=== PATIENT | female | born 1950 | race Caucasian/White ===

== ENCOUNTER → 2016-10-10 | Outpatient (CLI) | payer OTHER ==
[~2016-10-10] MED LIST: AMR2 PO; BIOT1CAP3 PO; FOLI1TAB7 PO; INSU1.2I SC; LISIPOW PO; MULT-55 PO; NRV5 PO; PRVC10 PO; STOOL SOFTENER PO
[2016-10-10 11:38] LABS: BASO % 1.1 %; BASO ABS # 0.05 K/uL (0-0.2); COMPLETE YES; HEMATOCRIT 42.2 % (37-47); IG% 0.4 %; LYMPH % 30.4 %; LYMPH ABS # 1.43 K/uL (1.2-3.4); MEAN CORPUSCULAR HEMOGLOBIN 28.7 pg (25-34); MEAN CORPUSCULAR HGB CONC 32.9 g/dl (32-36); MEAN PLATELET VOLUME 10.4 fL (7.4-10.4); MONO % 10.2 %; NEUT % 53.9 %; PLATELET COUNT 236 K/uL (130-400); RED BLOOD COUNT 4.85 M/uL (4.2-5.4); WHITE BLOOD COUNT 4.71 K/uL (4.8-10.8)
[2016-10-10 11:58] LABS: ESTIMATED AVERAGE GLUCOSE 163 mg/dl; HA1C FLAG Normal (Normal)
[2016-10-10 12:11] LABS: ALT/SGPT 29 U/L (12-78); BLOOD UREA NITROGEN 29 mg/dl (7-18); BUN/CREATININE RATIO 22.5 (10-20); CALCIUM 8.6 mg/dl (8.5-10.1); CARBON DIOXIDE 27 mmol/L (21-32); CHLORIDE 109 mmol/L (98-107); GLUCOSE 115 mg/dl (70-99); POTASSIUM 3.9 mmol/L (3.5-5.1); SODIUM 145 mmol/L (136-145)
[2016-10-10 12:20] LABS: ALB/GLOB RATIO 0.8 (0.9-2); ALKALINE PHOSPHATASE 108 U/L (45-117); AST/SGOT 26 U/L (15-37); FERRITIN 241.4 ng/ml (8.0-388.0)
--- NOTE | 2016-10-11 13:50 | CODING QUERY NO DIAGNOSIS ---
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 Please assist us with providing a diagnosis/symptom for the test(s) below: A diagnosis/symptom was not documented on your Order. A valid diagnosis/symptom is required to bill all insurances. Please remember that we are unable to code a diagnosis of rule out, probable, possible, questionable, or suspected. DOS 10/10/16 Tests that require a diagnosis: * CBC w/DIFF DIAGNOSIS: * GLYCATED Hb DIAGNOSIS: * FERRITIN DIAGNOSIS: * IRON DIAGNOSIS: * TSH DIAGNOSIS: * TRANSFERRIN DIAGNOSIS: * COMP METABOLIC DIAGNOSIS: Provider Signature: Date: Thank you Rita [facility] Information Management Once completed, please kindly fax back to [phone] For questions please call [phone]
== END | disposition home or self-care (01) ==
LOC: C.LAB 11:01
DX: D50.9 Iron deficiency anemia, unspecified (principal); E11.9 Type 2 diabetes mellitus without complications; E03.9 Hypothyroidism, unspecified; I10 Essential (primary) hypertension

== ENCOUNTER → 2016-11-11 | Outpatient (CLI) | payer OTHER | END | disposition home or self-care (01) | LOC: C.PATHSPEC 17:17 | PROVIDERS: ATTEND Podiatrist Foot & Ankle Surgery | DX: B07.0 Plantar wart (principal) ==

== ENCOUNTER → 2017-01-28 | Outpatient (CLI) | payer OTHER ==
[2017-01-28 13:08] LABS: HEMATOCRIT 41.3 % (37-47); MEAN CORPUSCULAR HEMOGLOBIN 28.7 pg (25-34); MEAN CORPUSCULAR HGB CONC 32.2 g/dl (32-36); MEAN PLATELET VOLUME 10.6 fL (7.4-10.4); PLATELET COUNT 236 K/uL (130-400); RED BLOOD COUNT 4.64 M/uL (4.2-5.4)
[2017-01-28 13:24] LABS: URINE APPEARANCE CLOUDY (CLEAR); URINE BILIRUBIN NEG (NEG); URINE COLOR YELLOW; URINE EPITHELIAL CELL AUTO >30 /lpf (0-5); URINE NITRITE NEG (NEG); URINE PH 5.5 (4.5-7.5); URINE SPECIFIC GRAVITY 1.018 (1.000-1.030); UROBILINOGEN NEG (NEG)
[2017-01-28 13:30] LABS: MANUAL MICROSCOPIC REQUIRED? NO; REVIEW REQ? NO
[2017-01-28 13:48] LABS: ALT/SGPT 28 U/L (12-78); BLOOD UREA NITROGEN 26 mg/dl (7-18); BUN/CREATININE RATIO 18.6 (10-20); CARBON DIOXIDE 30 mmol/L (21-32); CHLORIDE 106 mmol/L (98-107); GLUCOSE 211 mg/dl (70-99); SODIUM 144 mmol/L (136-145)
[2017-01-28 13:52] LABS: ALB/GLOB RATIO 0.8 (0.9-2); ALKALINE PHOSPHATASE 107 U/L (45-117); AST/SGOT 26 U/L (15-37)
[2017-01-28 13:56] LABS: CALCIUM 8.9 mg/dl (8.5-10.1)
[2017-01-28 14:09] LABS: URINE PROTIEN/CREAT RATIO 1.3 (0-0.2); URINE TOTAL PROTEIN 215.5 mg/dl (0-11.9)
== END | disposition home or self-care (01) ==
LOC: C.LAB 12:00
PROVIDERS: ATTEND Internal Medicine Nephrology
DX: D64.9 Anemia, unspecified (principal); I12.9 Hypertensive chronic kidney disease with stage 1 through stage 4 chronic kidney disease, or unspecified chronic kidney disease; N18.3 Chronic kidney disease, stage 3 (moderate); R80.9 Proteinuria, unspecified; E55.9 Vitamin D deficiency, unspecified

== ENCOUNTER → 2017-02-03 | Outpatient (CLI) | payer OTHER | END | disposition home or self-care (01) | LOC: C.PATHSPEC 11:45 | PROVIDERS: ATTEND Podiatrist Foot & Ankle Surgery | DX: B07.0 Plantar wart (principal) ==

== ENCOUNTER → 2017-02-20 | Outpatient (CLI) | payer OTHER ==
--- NOTE | 2017-02-20 15:41 | MAMMOGRAPHY REPORT ---
BILATERAL DIGITAL SCREENING MAMMOGRAM WITH CAD: 02/20/2017 CLINICAL HISTORY: Routine screening. TECHNIQUE: Current study was also evaluated with a Computer Aided Detection (CAD) system. Bilateral CC and MLO views were obtained. COMPARISON: Comparison is made to exams dated: 02/18/2016 mammogram, 02/16/2015 mammogram, 03/16/2014 u ltrasound, 02/15/2014 mammogram, 02/14/2013 mammogram, and 01/28/2012 mammogram - [facility]. BREAST COMPOSITION: There are scattered areas of fibroglandular density in both breasts. FINDINGS: No suspicious masses, calcifications, or areas of architectural distortion are noted in ei ther breast. There has been no significant interval change compared to prior exams. IMPRESSION: ACR BI-RADS CATEGORY 1: NEGATIVE There is no mammographic evidence of malignancy. A 1 year screening mammogram is recommended. The pa tient will receive written notification of the results. Approximately 10% of breast cancers are not detected with mammography. A negative mammographic report should not delay biopsy if a clinically suggestive mass is present. Cookie Reilly M.D. ah/:02/20/2017 14:37:01 [employer] Office: Kermit Corrales RT(R)(M), [facility] letter sent: Normal 1/2 BI-RADS Code: ACR BI-RADS Category 1: Negative
== END | disposition home or self-care (01) ==
LOC: C.MAMM 12:42
DX: Z12.31 Encounter for screening mammogram for malignant neoplasm of breast (principal)

== ENCOUNTER → 2017-02-24 | Outpatient (CLI) | payer OTHER ==
[2017-02-24 12:29] LABS: BASO % 1.3 %; BASO ABS # 0.05 K/uL (0-0.2); COMPLETE YES; EOS % 5.5 %; HEMATOCRIT 42.1 % (37-47); IG% 0.3 %; LYMPH % 34.6 %; LYMPH ABS # 1.32 K/uL (1.2-3.4); MEAN CELL VOLUME 90.1 fL (80-100); MEAN CORPUSCULAR HEMOGLOBIN 28.7 pg (25-34); MEAN CORPUSCULAR HGB CONC 31.8 g/dl (32-36); MEAN PLATELET VOLUME 10.5 fL (7.4-10.4); MONO % 12.9 %; NEUT % 45.4 %; PLATELET COUNT 245 K/uL (130-400); RED BLOOD COUNT 4.67 M/uL (4.2-5.4); WHITE BLOOD COUNT 3.81 K/uL (4.8-10.8)
[2017-02-24 13:28] LABS: ESTIMATED AVERAGE GLUCOSE 177 mg/dl; HA1C FLAG Normal (Normal)
== END | disposition home or self-care (01) ==
LOC: C.LAB 09:59
DX: E11.9 Type 2 diabetes mellitus without complications (principal); E78.5 Hyperlipidemia, unspecified; I10 Essential (primary) hypertension; D64.9 Anemia, unspecified; E72.11 Homocystinuria

== ENCOUNTER → 2017-03-05 | Outpatient (CLI) | payer OTHER ==
[2017-03-05 13:45] LABS: BLOOD UREA NITROGEN 29 mg/dl (7-18)
[2017-03-05 13:46] LABS: BUN/CREATININE RATIO 19.3 (10-20)
== END | disposition home or self-care (01) ==
LOC: C.LAB 11:52
PROVIDERS: ATTEND Urology
DX: N28.89 Other specified disorders of kidney and ureter (principal)

== ENCOUNTER → 2017-03-16 | Outpatient (CLI) | payer OTHER ==
[~2017-03-16] MED LIST changes: +GADAVIST IV PRN
--- NOTE | 2017-03-16 15:16 | DIAGNOSTIC IMAGING REPORT ---
MRI OF THE ABDOMEN WITH AND WITHOUT CONTRAST RENAL PROTOCOL CLINICAL HISTORY: Left renal mass. Renal hemorrhage. Polycystic kidney disease. COMPARISON STUDY: CT of the abdomen November 02, 2015 and MRI of the abdomen June 10, 2016. TECHNIQUE: Utilizing a 1.5 Inge magnet and dedicated coil, multiplanar, multiecho imaging of the abdomen was performed pre and postcontrast administration. Post contrast imaging was performed utilizing dynamic enhancement. Injection of 6.5 cc of Gadavist IV was uneventful. FINDINGS: Multiple T2 hyperintense nonenhancing hepatic lesions are consistent with cysts. These are similar to prior exam. The spleen, adrenal glands and pancreas are unremarkable. There is no biliary or pancreatic ductal dilatation. There is no abdominal lymphadenopathy or ascites. There has been continued decrease in size of the chronic left subcapsular renal hematoma since exam of June 10, 2016. There is no acute subcapsular hematoma. There is no acute perinephric hemorrhage. Innumerable bilateral renal cysts are noted. Several these are T1 hyperintense. A few have developed T1 hyperintensity since exam of June 10, 2016 consistent with interval hemorrhage. The largest lesion is a 3.2 cm hyperdense cyst arising from the upper pole of the left kidney. No enhancing renal lesions are identified on this examination. 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 IMPRESSION: 1. No enhancing renal lesions. 2. Innumerable bilateral renal cysts with interval development of inherent T1 hyperintensity within several of these lesions since MRI of June 10, 2016 which suggests interval hemorrhage. No acute perinephric/subcapsular hemorrhage. Resolving chronic left renal subcapsular hematoma. Electronically signed by: Hudson Medrano M.D. 03/16/2017 3:15 PM Dictated Date/Time: 03/16/2017 1:01 PM
== END | disposition home or self-care (01) ==
LOC: C.MRI 10:16
PROVIDERS: ATTEND Urology
DX: N28.89 Other specified disorders of kidney and ureter (principal)

== ENCOUNTER → 2017-05-05 | Outpatient (CLI) | payer OTHER ==
[~2017-05-05] MED LIST changes: -GADAVIST IV PRN
== END | disposition home or self-care (01) ==
LOC: C.LABSPEC 10:23
PROVIDERS: ATTEND Podiatrist Foot & Ankle Surgery
DX: B07.0 Plantar wart (principal)

== ENCOUNTER → 2017-05-28 | Outpatient (CLI) | payer OTHER ==
[2017-05-28 12:12] LABS: BASO ABS # 0.04 K/uL (0-0.2); COMPLETE YES; EOS % 6.6 %; HEMATOCRIT 40.4 % (37-47); IG% 0.5 %; LYMPH % 37.7 %; LYMPH ABS # 1.48 K/uL (1.2-3.4); MEAN CELL VOLUME 87.4 fL (80-100); MEAN CORPUSCULAR HEMOGLOBIN 28.1 pg (25-34); MEAN CORPUSCULAR HGB CONC 32.2 g/dl (32-36); MONO % 11.2 %; PLATELET COUNT 234 K/uL (130-400); RED BLOOD COUNT 4.62 M/uL (4.2-5.4); WHITE BLOOD COUNT 3.93 K/uL (4.8-10.8)
[2017-05-28 12:20] LABS: ESTIMATED AVERAGE GLUCOSE 160 mg/dl; HA1C FLAG Normal (Normal)
[2017-05-28 12:28] LABS: ALT/SGPT 29 U/L (12-78); AST/SGOT 30 U/L (15-37); BLOOD UREA NITROGEN 25 mg/dl (7-18); BUN/CREATININE RATIO 22.8 (10-20); CALCIUM 8.4 mg/dl (8.5-10.1); CARBON DIOXIDE 27 mmol/L (21-32); CHLORIDE 109 mmol/L (98-107); CHOLESTEROL 183 mg/dl (0-200); GLUCOSE 175 mg/dl (70-99); MAGNESIUM 1.9 mg/dl (1.8-2.4); POTASSIUM 3.8 mmol/L (3.5-5.1); SODIUM 143 mmol/L (136-145)
[2017-05-28 12:31] LABS: HDL CHOLESTEROL 46 mg/dl; LDL CHOLESTEROL CALCULATED 81 mg/dl; PHOSPHORUS 2.8 mg/dl (2.5-4.9); TRIGLYCERIDES 279 mg/dl (0-150); VERY LOW DENSITY LIPOPROT CALC 56 mg/dl
== END | disposition home or self-care (01) ==
LOC: C.LAB 10:30
DX: E11.9 Type 2 diabetes mellitus without complications (principal); E78.5 Hyperlipidemia, unspecified; E78.00 Pure hypercholesterolemia, unspecified

== ENCOUNTER → 2017-08-08 | Outpatient (CLI) | payer OTHER ==
[~2017-08-08] MED LIST changes: -FOLI1TAB7 PO; +FOLI1TAB8 PO
[2017-08-08 12:06] LABS: HEMATOCRIT 38.9 % (37-47); HEMOGLOBIN 12.5 g/dL (12.0-16.0); MEAN CELL VOLUME 88.6 fL (80-100); MEAN CORPUSCULAR HEMOGLOBIN 28.5 pg (25-34); MEAN CORPUSCULAR HGB CONC 32.1 g/dl (32-36); MEAN PLATELET VOLUME 10.4 fL (7.4-10.4); PLATELET COUNT 212 K/uL (130-400); RED CELL DISTRIBUTION WIDTH CV 15.2 % (11.5-14.5); RED CELL DISTRIBUTION WIDTH SD 48.8 fL (36.4-46.3); WHITE BLOOD COUNT 3.63 K/uL (4.8-10.8)
[2017-08-08 12:37] LABS: ALBUMIN 3.2 gm/dl (3.4-5.0); BLOOD UREA NITROGEN 26 mg/dl (7-18); CALCIUM 9.2 mg/dl (8.5-10.1); CARBON DIOXIDE 30 mmol/L (21-32); CREATININE 1.29 mg/dl (0.60-1.20); GLUCOSE 144 mg/dl (70-99); POTASSIUM 4.3 mmol/L (3.5-5.1); SODIUM 141 mmol/L (136-145)
[2017-08-08 12:38] LABS: PHOSPHORUS 3.6 mg/dl (2.5-4.9)
== END | disposition home or self-care (01) ==
LOC: C.LAB 10:45 → EDSTATUS 11:54
PROVIDERS: ATTEND Internal Medicine Nephrology
DX: E88.09 Other disorders of plasma-protein metabolism, not elsewhere classified (principal); E55.9 Vitamin D deficiency, unspecified; D64.9 Anemia, unspecified; N18.3 Chronic kidney disease, stage 3 (moderate); R80.9 Proteinuria, unspecified; Q61.3 Polycystic kidney, unspecified; I12.9 Hypertensive chronic kidney disease with stage 1 through stage 4 chronic kidney disease, or unspecified chronic kidney disease

== ENCOUNTER → 2017-09-18 | Outpatient (CLI) | payer OTHER ==
[2017-09-18 12:36] LABS: BASO ABS # 0.04 K/uL (0-0.2); EOS % 4.7 %; EOS ABS # 0.19 K/uL (0-0.5); HEMATOCRIT 41.2 % (37-47); HEMOGLOBIN 13.4 g/dL (12.0-16.0); LYMPH % 36.4 %; LYMPH ABS # 1.47 K/uL (1.2-3.4); MEAN CELL VOLUME 87.3 fL (80-100); MEAN CORPUSCULAR HEMOGLOBIN 28.4 pg (25-34); MEAN CORPUSCULAR HGB CONC 32.5 g/dl (32-36); MEAN PLATELET VOLUME 10.4 fL (7.4-10.4); MONO % 12.6 %; MONO ABS # 0.51 K/uL (0.11-0.59); NEUT % 45.3 %; NEUT ABS # 1.83 K/uL (1.4-6.5); PLATELET COUNT 240 K/uL (130-400); RED CELL DISTRIBUTION WIDTH SD 48.4 fL (36.4-46.3); WHITE BLOOD COUNT 4.04 K/uL (4.8-10.8)
[2017-09-18 12:50] LABS: HEMOGLOBIN A1C 7.5 % (4.5-5.6)
[2017-09-18 13:43] LABS: ALT/SGPT 29 U/L (12-78); AST/SGOT 24 U/L (15-37); BLOOD UREA NITROGEN 26 mg/dl (7-18); CALCIUM 9.1 mg/dl (8.5-10.1); CARBON DIOXIDE 30 mmol/L (21-32); CREATININE 1.16 mg/dl (0.60-1.20); GLUCOSE 141 mg/dl (70-99); POTASSIUM 3.8 mmol/L (3.5-5.1); SODIUM 140 mmol/L (136-145)
== END | disposition home or self-care (01) ==
LOC: C.LAB 10:53
DX: E11.9 Type 2 diabetes mellitus without complications (principal); I10 Essential (primary) hypertension

== ENCOUNTER → 2017-09-23 | Outpatient (CLI) | payer OTHER ==
--- NOTE | 2017-09-23 15:00 | DIAGNOSTIC IMAGING REPORT ---
L KNEE 1 OR 2 VIEWS ROUTINE HISTORY: 67 years-old Female L KNEE PAIN acute left knee pain without reported trauma COMPARISON: Radiographs of the left knee 05/21/2012 TECHNIQUE: AP and lateral views of the left knee FINDINGS: Bones appear mildly demineralized. Mild tricompartmental osteoarthritis is seen, most pronounced within the medial compartment. Small joint effusion. No acute fracture, subluxation or intra-articular loose body. No significant soft tissue swelling. Peripheral vascular disease. IMPRESSION: 1. Mild tricompartmental osteoarthritis without acute fracture or subluxation. 2. Small joint effusion. The above report was generated using voice recognition software. It may contain grammatical, syntax or spelling errors. Electronically signed by: Pierce Chavarria M.D. 09/23/2017 2:59 PM Dictated Date/Time: 09/23/2017 2:57 PM
== END | disposition home or self-care (01) ==
LOC: C.RAD 14:37
DX: M17.12 Unilateral primary osteoarthritis, left knee (principal); M25.562 Pain in left knee; M25.462 Effusion, left knee

== ENCOUNTER → 2017-12-22 | Outpatient (CLI) | payer OTHER ==
[2017-12-22 12:59] LABS: HEMOGLOBIN A1C 6.8 % (4.5-5.6)
[2017-12-22 14:16] LABS: ALT/SGPT 27 U/L (12-78); AST/SGOT 29 U/L (15-37); BLOOD UREA NITROGEN 37 mg/dl (7-18); CALCIUM 8.8 mg/dl (8.5-10.1); CARBON DIOXIDE 25 mmol/L (21-32); CREATININE 1.42 mg/dl (0.60-1.20); GLUCOSE 112 mg/dl (70-99); SODIUM 138 mmol/L (136-145)
[2017-12-22 14:19] LABS: CHOLESTEROL 183 mg/dl (0-200); LDL CHOLESTEROL CALCULATED 95 mg/dl
== END | disposition home or self-care (01) ==
LOC: C.LAB 10:45
DX: E11.9 Type 2 diabetes mellitus without complications (principal); E78.5 Hyperlipidemia, unspecified

== ENCOUNTER → 2018-04-19 | Outpatient (CLI) | payer OTHER ==
[2018-04-19 14:39] LABS: BASO % 1.4 %; BASO ABS # 0.06 K/uL (0-0.2); EOS % 5.4 %; EOS ABS # 0.24 K/uL (0-0.5); HEMATOCRIT 39.9 % (37-47); HEMOGLOBIN 12.7 g/dL (12.0-16.0); IG# 0.01 K/uL (0.00-0.02); LYMPH % 37.6 %; LYMPH ABS # 1.66 K/uL (1.2-3.4); MEAN CELL VOLUME 88.7 fL (80-100); MEAN CORPUSCULAR HEMOGLOBIN 28.2 pg (25-34); MEAN CORPUSCULAR HGB CONC 31.8 g/dl (32-36); MEAN PLATELET VOLUME 10.6 fL (7.4-10.4); MONO % 14.3 %; MONO ABS # 0.63 K/uL (0.11-0.59); NEUT % 41.1 %; NEUT ABS # 1.81 K/uL (1.4-6.5); PLATELET COUNT 240 K/uL (130-400); RED CELL DISTRIBUTION WIDTH CV 15.2 % (11.5-14.5); RED CELL DISTRIBUTION WIDTH SD 49.1 fL (36.4-46.3); WHITE BLOOD COUNT 4.41 K/uL (4.8-10.8)
[2018-04-19 15:20] LABS: ALBUMIN 3.3 gm/dl (3.4-5.0); ALT/SGPT 28 U/L (12-78); AST/SGOT 24 U/L (15-37); BLOOD UREA NITROGEN 29 mg/dl (7-18); CALCIUM 8.8 mg/dl (8.5-10.1); CARBON DIOXIDE 28 mmol/L (21-32); CREATININE 1.35 mg/dl (0.60-1.20); GLUCOSE 138 mg/dl (70-99); SODIUM 141 mmol/L (136-145)
[2018-04-19 15:46] LABS: CREATININE RANDOM URINE 87.4 mg/dl
== END | disposition home or self-care (01) ==
LOC: C.LAB 12:32
DX: E11.9 Type 2 diabetes mellitus without complications (principal); E78.5 Hyperlipidemia, unspecified

== ENCOUNTER 2020-04-23 11:22 | Observation (INO) ==
[2020-04-23 12:31] LABS: Basophils # (auto) 0.06 K/uL (0-0.2); Basophils % (auto) 1.2 %; Eosinophils # (auto) 0.42 K/uL (0-0.5); Eosinophils % (auto) 8.6 %; Hematocrit (blood only) 38.8 % (37-47); Hemoglobin 12.7 g/dL (12.0-16.0); Immature Granulocytes # (auto) 0.01 K/uL (0.00-0.02); Immature Granulocytes % (auto) 0.2 %; Lymphocytes # (auto) 1.48 K/uL (1.2-3.4); Lymphocytes % (auto) 30.3 %; Mean Corpuscular Hemoglobin 28.3 pg (25-34); Mean Corpuscular Hgb Conc 32.7 g/dL (32-36); Mean Corpuscular Volume 86.4 fL (80-100); Mean Platelet Volume 9.9 fL (7.4-10.4); Monocytes # (auto) 0.53 K/uL (0.11-0.59); Monocytes % (auto) 10.9 %; Neutrophils # (auto) 2.38 K/uL (1.4-6.5); Neutrophils % (auto) 48.8 %; Platelet Count 209 K/uL (130-400); RDW Coefficient of Variation 15.2 % (11.5-14.5); RDW Standard Deviation 48.5 fL (36.4-46.3); Red Blood Count 4.49 M/uL (4.2-5.4); White Blood Count 4.88 K/uL (4.8-10.8)
[2020-04-23 12:46] LABS: Partial Thromboplastin Ratio 0.9; Partial Thromboplastin Time 23.9 Seconds (21.0-31.0); Prothrombin Time 10.3 Seconds (9.0-12.0)
[2020-04-23 12:53] LABS: Alanine Aminotransferase 26 U/L (12-78); Aspartate Aminotransferase 34 U/L (15-37); BUN Creatinine Ratio 20.9 (10-20); Blood Urea Nitrogen 30 mg/dl (7-18); Carbon Dioxide 25 mmol/L (21-32); Chloride 111 mmol/L (98-107); Creatinine Clr Calc Pharmacy 31.2 ml/min; Est GFR (African American) 42.6; Est GFR (Non-African American) 36.8; Glucose 211 mg/dl (70-99); Lipase 207 U/L (73-393); Potassium 3.6 mmol/L (3.5-5.1); Sodium 142 mmol/L (136-145)
--- NOTE | 2020-04-23 12:58 | Electrocardiogram Report ---
Test Reason : Blood Pressure : / mmHG Vent. Rate : 077 BPM Atrial Rate : 077 BPM P-R Int : 188 ms QRS Dur : 092 ms QT Int : 398 ms P-R-T Axes : 000 -34 088 degrees QTc Int : 450 ms Normal sinus rhythm with sinus arrhythmia Left axis deviation Poor R wave progression, consider anterior AK vs. lead placement vs. LVH Abnormal ECG When compared with ECG of 30-JUN-2015 18:16, No significant change was found Confirmed by Aaron Romo ([id number]) on 04/23/2020 12:58:13 PM Referred By: Nikolas Chu Confirmed By:Aaron Romo
--- NOTE | 2020-04-23 13:03 | XRay Report ---
XR chest 2V PA/lateral CLINICAL HISTORY: Atypical chest pain COMPARISON STUDY: No previous studies for comparison. FINDINGS: The heart is the upper limits of normal in size. There is aortic tortuosity. There is no fa ilure. There is no focal pulmonary consolidation. No pleural effusions are visualized.[ IMPRESSION: No active disease in the chest. ACT 112: Negative or not required by law. Electronically signed by: Jose Rodrigez M.D. 04/23/2020 1:02 PM
--- NOTE | 2020-04-23 13:05 | Emergency Department Note ---
History of Present Illness General Chief complaint: Cardiac Assessment Stated complaint: PRESSURE/PAIN IN CHEST Time Seen by Provider: 04/23/20 12:07 History of Present Illness Provider complaint: Chest pain Onset (ago): day(s) 3 Location: chest Radiation: non-radiation Severity: moderate Pain Consistency: + intermittent Maximum Pain Intensity: 6 Current Pain Intensity: 0 Quality: + dull and + other (Pressure) Relieved By: + none Exacerbated By: + none Associated symptoms: + chest pain; no cough, no diaphoresis, no fever/chills, no headaches, no nausea/vomiting, no shortness of breath and no syncope Patient denies any history of loss of taste or smell. No fevers. No cough. No hemoptysis. No exogenous hormone usage. No recent travel. Patient states her pain started after she got a mammogram on Thursday. Home Medications Home Medications Medication Instructions Recorded Confirmed Type docusate sodium 100 mg tablet 100 mg PO QAM tab 06/20/19 04/23/20 History folic acid 1 mg tablet 1 mg PO QAM #90 tab 06/20/19 04/23/20 History pioglitazone 30 mg tablet 30 mg PO QAM tab 06/20/19 04/23/20 History amlodipine 5 mg tablet 5 mg PO HS tab 03/05/20 04/23/20 History fluticasone propionate 50 1 sprays INTRANASAL DAILY PRN #3 gm 03/05/20 04/23/20 History mcg/actuation nasal spray,suspension Nikky Eyelid Solution 1 applic TOPICAL QAM 04/23/20 04/23/20 History antiox.mv no.[id number]-apy-lvy 1 cap PO QAM 04/23/20 04/23/20 History [I-Caps] biotin 10,000 mcg PO QAM 04/23/20 04/23/20 History calcium carbonate-vitamin D3 1 tab PO QAM 04/23/20 04/23/20 History [Calcium 500 + D (D3)] cholecalciferol (vitamin D3) 25 mcg PO QAM 04/23/20 04/23/20 History [Vitamin D3] cyclosporine [Restasis MultiDose] 1 drp OPB QAM 04/23/20 04/23/20 History insulin degludec [Tresiba 18 unit SUBCUT HS 04/23/20 04/23/20 History FlexTouch U-100] insulin lispro [Humalog KwikPen See Rx Instructions .ROUTE .COMPLEX 04/23/20 04/23/20 History Insulin] lisinopril 10 mg PO HS 04/23/20 04/23/20 History bzrkktly-hik-snfc-FA-lutein 1 tab PO QAM 04/23/20 04/23/20 History [Centrum Silver Women] rosuvastatin [Crestor] 5 mg PO HS 04/23/20 04/23/20 History Allergies Allergy/AdvReac Type Severity Reaction Status Date / Time cephalexin Allergy Unknown Verified 04/23/20 14:08 Cipro Allergy Unknown rash Verified 06/30/15 17:30 ciprofloxacin Allergy Unknown rash Verified 04/23/20 14:08 shellfish derived Allergy Unknown Verified 04/23/20 14:08 Sulfa (Sulfonamide Allergy Unknown . Verified 04/23/20 14:08 Antibiotics) peanuts Allergy Mild Cough Uncoded 04/23/20 14:08 Past Med/Surg History Medical History (Updated 04/23/20 @ 14:01 by Stefan Salmeron MD) Chronic kidney disease, stage III (moderate) Diabetes Hypertension Renal hemorrhage, left Vitamin D deficiency Surgical History (Updated 04/23/20 @ 13:02 by Favio Najera) History of hysterectomy Social History Smoking Status: Never smoker Feels Safe at Home: Yes Review of Systems A total of 10 systems reviewed and were otherwise negative Physical Exam Vital Signs Vital Signs - 24 hr 04/23/20 11:30 04/23/20 12:00 04/23/20 12:16 Temperature 36.8 C Temperature Source Oral Pulse Rate 73 68 69 Pulse Rate from SpO2 Sensor 68 68 Respiratory Rate 20 19 20 Blood Pressure 137/72 134/86 Blood Pressure Mean 93 111 Blood Pressure Position Sitting Pulse Oximetry 97 97 98 Oxygen Delivery Method Sepsis Recent Fever Within 48 Hours No Sepsis New/Unexplained Change in Mental Status No Sepsis Action Taken by Nursing No Action Required 04/23/20 12:30 04/23/20 13:53 04/23/20 14:00 Temperature Temperature Source Pulse Rate 64 66 67 Pulse Rate from SpO2 Sensor 64 Respiratory Rate 22 17 21 Blood Pressure 134/75 154/94 H 167/107 H Blood Pressure Mean 101 119 113 Blood Pressure Position Pulse Oximetry 97 98 98 Oxygen Delivery Method Sepsis Recent Fever Within 48 Hours Sepsis New/Unexplained Change in Mental Status Sepsis Action Taken by Nursing 04/23/20 14:26 Temperature Temperature Source Pulse Rate Pulse Rate from SpO2 Sensor Respiratory Rate Blood Pressure Blood Pressure Mean Blood Pressure Position Pulse Oximetry Oxygen Delivery Method Room Air Sepsis Recent Fever Within 48 Hours Sepsis New/Unexplained Change in Mental Status Sepsis Action Taken by Nursing Physical Exam GENERAL: She is oriented to person, place, and time. She appears well-developed and well-nourished. She does not appear distressed. HENT: Exam performed. -Head: Normocephalic and atraumatic. -Right Ear: External ear normal. No mastoid tenderness. -Left Ear: External ear normal. No mastoid tenderness. -Mouth/Throat: The oropharynx is clear and moist. No trismus in the jaw. No dental abscesses or uvula swelling. No oropharyngeal exudate or tonsillar abscesses. EYES: Conjunctivae and EOM are normal. Pupils are equal, round, and reactive to light. Right eye exhibits no discharge. Left eye exhibits no discharge. No scleral icterus. NECK: Normal range of motion. Neck supple. No JVD present. No spinous process tenderness present. No carotid bruit present. No rigidity. No tracheal deviation and normal range of motion present. No Brudzinski's sign and no Kernig's sign noted. CV: Normal rate, regular rhythm, normal heart sounds and intact distal pulses. There is no peripheral edema. Palpable radial pulses bue. PULM/CHEST: Effort normal and breath sounds normal. No respiratory distress. No stridor. She has no wheezes. She has no rales. -Chest Wall: She exhibits no tenderness. ABD: The abdomen is soft. Bowel sounds are normal. She has no distension. No mass is present. There is no tenderness. There is no rebound, no guarding, no Schuler's sign and no tenderness at McBurney's point. Rovsig negative MUSC/SKEL: Normal range of motion. There is no peripheral edema, tenderness or deformity. LYMPH: No cervical adenopathy. NEURO: She is alert and oriented to person, place, and time. She has normal strength. No cranial nerve deficit or sensory deficit. Coordination and gait normal. GCS eye subscore is 4. GCS verbal subscore is 5. GCS motor subscore is 6. Cerebellar tests wnl. SKIN: Skin is warm and dry. She is not diaphoretic. PSYCH: She has a normal mood and affect. Behavior is normal. Judgment and thought content normal. Course Course 1207: The patient was evaluated in room B10. A complete history and physical exam was performed. Cardiac monitoring: An order was placed for continuous cardiac monitoring. The monitor shows a rate of 80 with sinus rhythm 1314: Vital signs stable. Labs show an elevated troponin at 1.59. Patient states she has been told to avoid all blood thinning medications in the past including aspirin given her history of spontaneous renal hemorrhage. 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 Guillory and he states given her history of spontaneous renal hemorrhage we will hold off on heparin at this time and trend her troponins. [facility]. Medical Decision Making Laboratory Data Result diagrams: 04/23/20 12:15 04/23/20 12:15 Lab Results 04/23/20 04/23/20 04/23/20 Range/Units 12:15 12:15 12:15 WBC 4.88 (4.8-10.8) K/uL RBC 4.49 (4.2-5.4) M/uL Hgb 12.7 (12.0-16.0) g/dL Hct 38.8 (37-47) % MCV 86.4 (80-100) fL MCH 28.3 (25-34) pg MCHC 32.7 (32-36) g/dL RDW Std Deviation 48.5 H (36.4-46.3) fL RDW Coeff of Kristyn 15.2 H (11.5-14.5) % Plt Count 209 (130-400) K/uL MPV 9.9 (7.4-10.4) fL Immature Gran % (Auto) 0.2 % Neut % (Auto) 48.8 % Lymph % (Auto) 30.3 % Kendall % (Auto) 10.9 % Eos % (Auto) 8.6 % Baso % (Auto) 1.2 % Neut # (Auto) 2.38 (1.4-6.5) K/uL Lymph # (Auto) 1.48 (1.2-3.4) K/uL Kendall # (Auto) 0.53 (0.11-0.59) K/uL Eos # (Auto) 0.42 (0-0.5) K/uL Baso # (Auto) 0.06 (0-0.2) K/uL Immature Gran # (Auto) 0.01 (0.00-0.02) K/uL ESR (0-21) mm/hr PT 10.3 (9.0-12.0) Seconds INR 1.0 (0.9-1.1) APTT 23.9 (21.0-31.0) Seconds PTT Ratio 0.9 Sodium 142 (136-145) mmol/L Potassium 3.6 (3.5-5.1) mmol/L Chloride 111 H (98-107) mmol/L Carbon Dioxide 25 (21-32) mmol/L Anion Gap 6.0 (3-11) BUN 30 H (7-18) mg/dl Creatinine 1.43 H (0.6-1.2) mg/dl Est Cr Clr Drug Dosing 31.2 ml/min Est GFR ( Amer) 42.6 Est GFR (Non-Af Amer) 36.8 BUN/Creatinine Ratio 20.9 H (10-20) Glucose 211 H (70-99) mg/dl Calcium 8.0 L (8.5-10.1) mg/dl Total Bilirubin 0.4 (0.2-1) mg/dl Direct Bilirubin < 0.1 (0-0.2) mg/dl AST 34 (15-37) U/L ALT 26 (12-78) U/L Alkaline Phosphatase 86 (45-117) U/L Troponin I 1.590 H* (0-0.045) ng/ml Total Protein 6.9 (6.4-8.2) gm/dl Albumin 3.0 L (3.4-5.0) gm/dl Lipase 207 (73-393) U/L 04/23/20 Range/Units 12:15 WBC (4.8-10.8) K/uL RBC (4.2-5.4) M/uL Hgb (12.0-16.0) g/dL Hct (37-47) % MCV (80-100) fL MCH (25-34) pg MCHC (32-36) g/dL RDW Std Deviation (36.4-46.3) fL RDW Coeff of Kristyn (11.5-14.5) % Plt Count (130-400) K/uL MPV (7.4-10.4) fL Immature Gran % (Auto) % Neut % (Auto) % Lymph % (Auto) % Kendall % (Auto) % Eos % (Auto) % Baso % (Auto) % Neut # (Auto) (1.4-6.5) K/uL Lymph # (Auto) (1.2-3.4) K/uL Kendall # (Auto) (0.11-0.59) K/uL Eos # (Auto) (0-0.5) K/uL Baso # (Auto) (0-0.2) K/uL Immature Gran # (Auto) (0.00-0.02) K/uL ESR 22 H (0-21) mm/hr PT (9.0-12.0) Seconds INR (0.9-1.1) APTT (21.0-31.0) Seconds PTT Ratio Sodium (136-145) mmol/L Potassium (3.5-5.1) mmol/L Chloride (98-107) mmol/L Carbon Dioxide (21-32) mmol/L Anion Gap (3-11) BUN (7-18) mg/dl Creatinine (0.6-1.2) mg/dl Est Cr Clr Drug Dosing ml/min Est GFR ( Amer) Est GFR (Non-Af Amer) BUN/Creatinine Ratio (10-20) Glucose (70-99) mg/dl Calcium (8.5-10.1) mg/dl Total Bilirubin (0.2-1) mg/dl Direct Bilirubin (0-0.2) mg/dl AST (15-37) U/L ALT (12-78) U/L Alkaline Phosphatase (45-117) U/L Troponin I (0-0.045) ng/ml Total Protein (6.4-8.2) gm/dl Albumin (3.4-5.0) gm/dl Lipase (73-393) U/L Imaging Data Radiologist's Impression: XR chest 2V PA/lateral CLINICAL HISTORY: Atypical chest pain COMPARISON STUDY: No previous studies for comparison. FINDINGS: The heart is the upper limits of normal in size. There is aortic tortu osity. There is no failure. There is no focal pulmonary consolidation. No pleural effusions are visualized.[ IMPRESSION: No active disease in the chest. ACT 112: Negative or not required by law. Electronically signed by: Jose Rodrigez M.D. 04/23/2020 1:02 PM Dictated: 04/23/20 1301 Transcribed: 04/23/20 1301 ECG Data Indication: + chest pain Rate (beats per minute): 77 Rhythm: + normal sinus ECG Intervals/blocks: + Normal QRS, + Normal NH and + Normal QT-c ECG ST segments: + Normal ST segments ECG Findings: + LVH MDM Narrative Vital signs stable. Labs show an elevated troponin at 1.59. Patient states she has been told to avoid all blood thinning medications in the past including aspirin given her history of spontaneous renal hemorrhage. I discussed the case with her weaver tire cord Dr. Guillory and he states given her history of spontaneous renal hemorrhage we will hold off on heparin at this time and trend her troponins. [facility] was [facility]. Impression & Plan Non-ST elevation [facility] (NSTEMI) Discharge Plan Visit Data Chief Complaint: Cardiac Assessment Stated Complaint: PRESSURE/PAIN IN CHEST ED Provider: Favio Najera Discharge Problem: Non-ST elevation [facility] (NSTEMI) Patient Disposition: Admitted As Inpatient Discharge Instructions Interventions: ED Discharge Assessment Last Done: 04/23/20 14:26 Forms Stand Alone Forms: My [facility] Prescriptions Prescriptions: No Action folic acid 1 mg tablet 1 mg PO QAM Qty: 90 RF: 0 pioglitazone 30 mg tablet 30 mg PO QAM RF: 0 docusate sodium 100 mg tablet 100 mg PO QAM RF: 0 amlodipine 5 mg tablet 5 mg PO HS RF: 0 fluticasone propionate 50 mcg/actuation spray,suspension 1 sprays intranasal DAILY PRN (Reason: Congestion) Qty: 3 RF: 0 biotin 10,000 mcg Capsule 10,000 mcg PO QAM RF: 0 lisinopril 10 mg tablet 10 mg PO HS RF: 0 insulin lispro [Humalog KwikPen Insulin] 100 unit/mL insulin pen See Rx Instructions .ROUTE .COMPLEX RF: 0 rosuvastatin [Crestor] 5 mg tablet 5 mg PO HS RF: 0 cholecalciferol (vitamin D3) [Vitamin D3] 25 mcg (1,000 unit) Tablet 25 mcg PO QAM RF: 0 calcium carbonate-vitamin D3 [Calcium 500 + D (D3)] 500 mg(1,250mg) -125 unit Tablet 1 tab PO QAM RF: 0 Centrum Silver Women 8 mg iron-400 mcg-300 mcg Tablet 1 tab PO QAM RF: 0 I-Caps 280-10-2 mg Capsule 1 cap PO QAM RF: 0 Tresiba FlexTouch U-100 100 unit/mL (3 mL) insulin pen 18 unit SUBCUT HS RF: 0 Restasis MultiDose 0.05 % drops 1 drp OPB QAM RF: 0 Nikky Eyelid Solution 1 applic topical QAM RF: 0 Referrals Referrals: Nikolas Chu Jr, [Primary Care Provider] -
[2020-04-23 13:06] LABS: Alkaline Phosphatase 86 U/L (45-117); Bilirubin Direct < 0.1 mg/dl (0-0.2); Bilirubin,Total 0.4 mg/dl (0.2-1); Total Protein 6.9 gm/dl (6.4-8.2)
--- NOTE | 2020-04-23 13:42 | History & Physical Report ---
Date of Service April 23, 2020 Assessment & Plan (1) Atypical chest pain: Perimyocarditis vs. NSTEMI Currently chest pain free, encouraged to tell nurses if any recurrence Serial troponins ESR/CRP added to assess for pericarditis, if raised will add colchicine HbA1C and lipid panel with AM labs TTE today No ASA/heparin/NSAIDs in ER given history of retroperitoneal bleed on ASA alone and not definitive NSTEMI at this time, history certainly more consistent with pericarditis, will discuss further with urology Continue rosuvastatin Consult cardiology (2) Diabetes: Home med list: Humalog 2, 6, 10-12, Tresiba 18 units HS (took last night), Pioglitazone 30mg PO daily Inpatient treatment with T2DM diet, Lantus 10 units BID, Novolog aim 110-140, correction 30, carb coverage 11 HbA1C with AM labs (previously 7.9 in Oct) (3) Chronic kidney disease, stage III (moderate): Monitor BMP with AM labs (4) Hypertension: Continue home medication of lisinopril 10mg PO daily (5) DVT prophylaxis: No chemical prophylaxis due to history of retroperitoneal bleed Admission and Anticipated Discharge Date Admission Date: 04/23/2020 History of Present Illness Chief Complaint: Chest pain Primary Care Provider: Nikolas Chu Jr, Anjelica Taylor is a 70 year old female who presented to the ER via private vehicle due to chest pain. Started on 3 days previously with mild discomfort in chest at rest. Substernal, no radiation. "Little pressure and dull pain", not sharp. Non-exertional. Worse at night when lying down. No associated SOB, diaphoresis, nausea. Appeared to improve in the morning and even managed yard work without pain. However, progressively got worse towards the evening. The following day she had the same pattern with worsening intermittent chest pain throughout the day. Last night is the worst it has been and she had a hard time going to sleep. She would have come to the ER then but she has a hard time driving at night therefore waited till this morning to call her PCP who advised her to come to the ER. Worst pain around 11-1am last night, severity 6-7/10. No pain since waking up this morning. Generally more tired recently and not exerting herself as much. No orthopnea, PND, palpitations, presyncope or syncope. No personal smoking or cardiac history. Family history of CAD - father in 60s, brother in 80s. Concerning history of spontaneous retroperitoneal bleed in 2016 associated with renal cysts requiring ICU admission although no invasive intervention ulblue mately. This occurred while taking aspirin 81mg and she was told she should not take blood thinners again. However she was also taking NSAIDs 3 weeks prior to this diagnosis and thought was this also potentially contributed. Under Dr Cox (previously Dr Koch). In the ER she has been chest pain free however troponin was elevated. No ASA or heparin started due to history of retroperitoneal bleed. Allergies Allergy/AdvReac Type Severity Reaction Status Date / Time cephalexin Allergy Unknown Verified 04/23/20 14:08 Cipro Allergy Unknown rash Verified 06/30/15 17:30 ciprofloxacin Allergy Unknown rash Verified 04/23/20 14:08 shellfish derived Allergy Unknown Verified 04/23/20 14:08 Sulfa (Sulfonamide Allergy Unknown . Verified 04/23/20 14:08 Antibiotics) peanuts Allergy Mild Cough Uncoded 04/23/20 14:08 Home Medications Home Medications Medication Instructions Recorded Confirmed Type docusate sodium 100 mg tablet 100 mg PO QAM tab 06/20/19 04/23/20 History folic acid 1 mg tablet 1 mg PO QAM #90 tab 06/20/19 04/23/20 History pioglitazone 30 mg tablet 30 mg PO QAM tab 06/20/19 04/23/20 History amlodipine 5 mg tablet 5 mg PO HS tab 03/05/20 04/23/20 History fluticasone propionate 50 1 sprays INTRANASAL DAILY PRN #3 gm 03/05/20 04/23/20 History mcg/actuation nasal spray,suspension Nikky Eyelid Solution 1 applic TOPICAL QAM 04/23/20 04/23/20 History antiox.mv no.[id number] 1 cap PO QAM 04/23/20 04/23/20 History [I-Caps] biotin 10,000 mcg PO QAM 04/23/20 04/23/20 History calcium carbonate-vitamin D3 1 tab PO QAM 04/23/20 04/23/20 History [Calcium 500 + D (D3)] cholecalciferol (vitamin D3) 25 mcg PO QAM 04/23/20 04/23/20 History [Vitamin D3] cyclosporine [Restasis MultiDose] 1 drp OPB QAM 04/23/20 04/23/20 History insulin degludec [Tresiba 18 unit SUBCUT HS 04/23/20 04/23/20 History FlexTouch U-100] insulin lispro [Humalog KwikPen See Rx Instructions .ROUTE .COMPLEX 04/23/20 04/23/20 History Insulin] lisinopril 10 mg PO HS 04/23/20 04/23/20 History vvxejwdq-lnq-ephs-FA-lutein 1 tab PO QAM 04/23/20 04/23/20 History [Centrum Silver Women] rosuvastatin [Crestor] 5 mg PO HS 04/23/20 04/23/20 History Past Med/Surg History Medical History Chronic kidney disease, stage III (moderate) Diabetes Hypertension Renal hemorrhage, left Vitamin D deficiency Surgical History History of hysterectomy Social History Smoking Status: Never smoker Hx Alcohol Use: No Hx Substance Use: No Preferred Language: Libyan Communication Ability: Effective Ticket 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 Supervisor Required: No Beliefs That Will Affect Care: None Current Living Situation: Alone Other Information That Helps Us Care for You: No Feels Safe at Home: Yes Safety Concerns: Feels Safe At This Time Review of Systems Review of Systems: All systems reviewed & are unremarkable except as noted in HPI & below Physical Exam Constitutional: well developed and well nourished; no acute distress Eyes: PERRL, conjunctivae normal, anicteric sclerae ENMT: external ear and nose normal, oropharynx normal Neck: trachea midline, no thyromegaly Respiratory: normal respiratory effort, lungs clear to auscultation Cardiovascular: Rate/Rhythm: regular rate and regular rhythm Heart Sounds: no murmur Vessels: no JVD Extremities: normal capillary refill and + pedal edema (trace b/l equal); no calf tenderness Gastrointestinal (Abdomen): normal bowel sounds, soft, nontender, no hepatosplenomegaly Musculoskeletal: no cyanosis or clubbing, extremities motor strength 5/5 Skin: no rashes, warm and dry Neurologic: moves all extremities and awake; not confused Psychiatric: A+Ox3, euthymic affect Genitourinary: no CVA tenderness Lymphatic: no cervical or axillary lymphadenopathy Results & Data Results & Data ([facility]) Vital Signs (Past 12 Hours) Vital Signs Temp Pulse Resp BP Pulse Ox 04/23/20 12:30 64 22 134/75 97 04/23/20 12:16 69 20 98 04/23/20 12:00 68 19 134/86 97 04/23/20 11:30 36.8 C 73 20 137/72 97 Diagnostic Findings XR chest 2V PA/lateral IMPRESSION: No active disease in the chest. ECG Indication: chest pain Rate (beats per minute): 77 Rhythm: normal sinus Findings: + other (poor R wave progression, left axis deviation) Comparison ECG Date: from (06/30/2015) Change: no significant change Code Status & VTE Plan Code Status Full VTE Prophylaxis Plan VTE Prophylaxis will be ordered: Yes Reason for no VTE drug order: Treatment not indicated (lower risk VTE, higher risk retroperitoneal bleed) PG Care Time/CCT Total # of Minutes Spent Total Time Spent with Patient: Total time spent is greater than 50% in coordination of care (as documented) at patient's floor/unit and/or counseling patient: Coding Level of Care Code 17896 Initial Inpt Care Lvl 3 Diagnoses Atypical chest pain R07.89 Diabetes E11.9 Chronic kidney disease, stage III (moderate) N18.3 Hypertension I10 DVT prophylaxis Z29.9
[2020-04-23] MEDS ORDERED: GLUCOSE 10 TABS/TUBE PO PRN (15:47)
[2020-04-23] MEDS ORDERED: DEXTROSE 50% 50 ML SYRINGE IV PRN (15:47)
[2020-04-23] MEDS ORDERED: GLUCAGON FOR INJ 1 MG VIAL SQ PRN (15:47)
[2020-04-23] MEDS ORDERED: ONDANSETRON INJ 2 MG/ML 2 ML VIAL IV PRN (15:47)
[2020-04-23] MEDS ORDERED: CARBOHYDRATES FOR HYPOGLYCEMIA PO PRN (15:47)
[2020-04-23] MEDS ORDERED: GLUCOSE 40% GEL 15 GM TUBE PO PRN (15:47)
--- NOTE | 2020-04-23 15:48 | XCELERA ---
[id number] \\[id number]_[id number]
[2020-04-23] MEDS ORDERED: FLUTICASONE PROPIONATE NA SPR 16 GM BTL NAE PRN (16:16)
[2020-04-23] MEDS: INSULIN ASPART 100 UNITS/ML 3 ML PEN SC SCH ×2 (17:09→21:26)
[2020-04-23] MEDS ORDERED: CLOPIDOGREL BISULFATE 75 MG TAB PO ONE (20:44)
[2020-04-23] MEDS ORDERED: AMLODIPINE BESYLATE 5 MG TAB PO SCH (21:00)
[2020-04-23] MEDS ORDERED: lisinopriL 10 MG TAB PO SCH (21:00)
[2020-04-23] MEDS ORDERED: COLCHICINE 0.6 MG TAB PO SCH (21:00)
[2020-04-23] MEDS ORDERED: ROSUVASTATIN CALCIUM 5 MG TAB PO SCH (21:00)
[2020-04-23] MEDS: INSULIN GLARGINE SOLOSTAR 100 UNITS/ML 3 ML PEN SC SCH (21:24)
[2020-04-23] MEDS: METOPROLOL TARTRATE 25 MG TAB PO SCH (21:41)
[2020-04-24 05:58] LABS: Hematocrit (blood only) 40.7 % (37-47); Hemoglobin 13.3 g/dL (12.0-16.0); Mean Corpuscular Hemoglobin 28.3 pg (25-34); Mean Corpuscular Hgb Conc 32.7 g/dL (32-36); Mean Corpuscular Volume 86.6 fL (80-100); Mean Platelet Volume 10.2 fL (7.4-10.4); Platelet Count 204 K/uL (130-400); RDW Coefficient of Variation 15.1 % (11.5-14.5); RDW Standard Deviation 48.2 fL (36.4-46.3); White Blood Count 5.42 K/uL (4.8-10.8)
[2020-04-24 06:33] LABS: BUN Creatinine Ratio 24.8 (10-20); Calcium 7.9 mg/dl (8.5-10.1); Creatinine Clr Calc Pharmacy 37.3 ml/min; Est GFR (African American) 49.2; Est GFR (Non-African American) 42.4; Potassium 3.6 mmol/L (3.5-5.1)
[2020-04-24 06:43] LABS: Troponin I 1.82 ng/ml (0-0.045)
[2020-04-24] MEDS: METOPROLOL TARTRATE 25 MG TAB PO SCH (07:50)
[2020-04-24 08:16] LABS: Estimated Average Glucose 171 mg/dl; Hemoglobin A1C 7.6 % (4.5-5.6)
[2020-04-24] MEDS ORDERED: FOLIC ACID 1 MG TAB PO SCH (09:00)
[2020-04-24] MEDS ORDERED: [UNRECOGNIZED DRUG - REMARK] PO SCH (09:00)
[2020-04-24] MEDS ORDERED: NON-FORMULARY MEDICATION (Biotin 10,000 MCG) PO SCH (09:00)
[2020-04-24] MEDS ORDERED: CALCIUM 600MG + VIT D 400 IU TAB PO SCH (09:00)
[2020-04-24] MEDS ORDERED: CLOPIDOGREL BISULFATE 75 MG TAB PO SCH (09:00)
[2020-04-24] MEDS ORDERED: DOCUSATE SODIUM 100 MG CAP PO SCH (09:00)
[2020-04-24] MEDS ORDERED: [UNRECOGNIZED DRUG - OTHER] TOP SCH (09:00)
[2020-04-24] MEDS ORDERED: CEROVITE ADV FORMULA TAB PO SCH (09:00)
[2020-04-24] MEDS ORDERED: CHOLECALCIFEROL 1,000 UNITS 25 MCG TAB PO SCH (09:00)
--- NOTE | 2020-04-24 10:09 | Cardiology Consultation ---
Date of Consultation April 24, 2020 Assessment & Plan (1) Chest pain: 2. Elevated troponin 3. Insulin dependent type 2 diabetes 4. Hypertension 5. Dyslipidemia 6. CKD 7. History of renal hemorrhage Patient was admitted yesterday after several day history of chest pain. Chest pain is somewhat atypical in nature and waxed/waned for hours at a time. No exertional symptoms. She has been chest pain free since admission. On exam appears well perfused without signs of heart failure. Troponin mildly elevated and has remained flat, may be demand ischemia. Echo shows normal LV function and wall motion, EKG without acute changes. Given her risk factors for coronary disease recommend ischemic evaluation to rule out high risk disease. Discussed cardiac catheterization versus stress testing. Patient and daughter prefer stress testing, plan to perform later this morning. Recommend ASCVD risk factor modification. Feel symptoms are atypical for myopericarditis. No recent viral illness. Symptoms are resolved without NSAIDs and inflammatory markers unremarkable. Supervising Physician Co-Signing Physician Notes Patient seen and examined. Agree with Samara Yip's assessment and plan. Suspect mild elevation troponin related to demand ischemia (hypertension and her mild LVH). Agree with stress testing. History of Present Illness Reason for Consultation: chest pain Attending Physician: Danish Koch MD History of Present Illness Mrs. Taylor is a 70 year old female admitted with chest pain. Medical history significant for type 2 insulin dependent diabetes, hypertension, dyslipidemia, CKD, history of renal hemorrhage. Patient denies history of cardiovascular disease. She was admitted yesterday with chest pain. She states that over the past week or so her chest has felt "funny." Then on Thursday evening she developed central chest pressure/tightness which waxed and waned for several hours. Symptoms started while sitting, watching TV. She eventually was able to fall asleep. When she woke the next morning she felt better and performed some light yard work without any exertional symptoms. She tired out easily but that is not unusual for her. Thursday evening she had recurrent chest tightness similar to the night before. Thursday she felt worse and her chest pain waxed and waned throughout the day, by Thursday evening it was more severe and she had trouble falling asleep. Also she had several brief episodes of palpitations in which her heart felt like it was fluttering and racing. No radiation of pain to extremities, neck or jaw. No associated shortness of breath, nausea or diaphoresis. Pain was not positional. No recent viral symptoms. She finally fell asleep around 1 am. Thursday when she woke up she was asymptomatic. She notified her PCP of her chest pain and was advised to come to the emergency department. She was admitted and has not had any recurrence of her chest pain. Initial troponin mildly elevated at 1.59, 1.82 this morning. Electrocardiograms with poor R wave progression, no ST elevation. Echocardiogram with normal LV function, wall motion and mild LVH. She was hypertensive upon presentation. Telemetry sinus rhythm without arrhythmia. Of note patient has a history of polycystic kidney disease with CKD and history of renal hemorrhage requiring transfusion in 2014. She was evaluated at [facility] at that time and was advised to avoid NSAIDs and stop her daily aspirin 81 mg. Family history: Father had LA in early 70s. Aunt with LA in 70s. Oldest brother with LA in 60s, CABG in 70s. Brother with heart disease, still living in 80s. Social history: . Lives alone in [place]. 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 No tobacco, alcohol or drug use. Allergies Allergy/AdvReac Type Severity Reaction Status Date / Time cephalexin Allergy Unknown Verified 04/23/20 14:08 Cipro Allergy Unknown rash Verified 06/30/15 17:30 ciprofloxacin Allergy Unknown rash Verified 04/23/20 14:08 shellfish derived Allergy Unknown Verified 04/23/20 14:08 Sulfa (Sulfonamide Allergy Unknown . Verified 04/23/20 14:08 Antibiotics) peanuts Allergy Mild Cough Uncoded 04/23/20 14:08 Home Medications Home Medications Medication Instructions Recorded Confirmed Type docusate sodium 100 mg tablet 100 mg PO QAM tab 06/20/19 04/23/20 History folic acid 1 mg tablet 1 mg PO QAM #90 tab 06/20/19 04/23/20 History pioglitazone 30 mg tablet 30 mg PO QAM tab 06/20/19 04/23/20 History amlodipine 5 mg tablet 5 mg PO HS tab 03/05/20 04/23/20 History fluticasone propionate 50 1 sprays INTRANASAL DAILY PRN #3 gm 03/05/20 04/23/20 History mcg/actuation nasal spray,suspension Nikky Eyelid Solution 1 applic TOPICAL QAM 04/23/20 04/23/20 History antiox.mv no.[id number]-jwt-tov 1 cap PO QAM 04/23/20 04/23/20 History [I-Caps] biotin 10,000 mcg PO QAM 04/23/20 04/23/20 History calcium carbonate-vitamin D3 1 tab PO QAM 04/23/20 04/23/20 History [Calcium 500 + D (D3)] cholecalciferol (vitamin D3) 25 mcg PO QAM 04/23/20 04/23/20 History [Vitamin D3] cyclosporine [Restasis MultiDose] 1 drp OPB QA 04/23/20 04/23/20 History insulin degludec [Tresiba 18 unit SUBCUT HS 04/23/20 04/23/20 History FlexTouch U-100] insulin lispro [Humalog KwikPen See Rx Instructions .ROUTE .COMPLEX 04/23/20 04/23/20 History Insulin] lisinopril 10 mg PO HS 04/23/20 04/23/20 History bpvnjonc-nhq-olrb-FA-lutein 1 tab PO QAM 04/23/20 04/23/20 History [Centrum Silver Women] rosuvastatin [Crestor] 5 mg PO HS 04/23/20 04/23/20 History Patient History Medical History Chronic kidney disease, stage III (moderate) Diabetes Hypertension Renal hemorrhage, left Vitamin D deficiency Surgical History History of hysterectomy Social History Smoking Status: Never smoker Hx Alcohol Use: No Hx Substance Use: No Preferred Language: Macedonian Communication Ability: Effective Melter Supervisor Required: No Beliefs That Will Affect Care: None Current Living Situation: Alone Other Information That Helps Us Care for You: No Feels Safe at Home: Yes Safety Concerns: Feels Safe At This Time Review of Systems Review of Systems: All systems reviewed & are unremarkable except as noted in HPI & below Physical Exam Physical Exam: General: No acute distress, comfortable. HEENT: Head is normal. PERRLA. EOMI. Sclerae anicteric. Ears, nose and throat unremarkable. Mucous membranes moist. Neck: Normal carotid upstrokes, no bruits. No appreciable JVD. Lungs: Clear to auscultation bilaterally without rales, rhonchi or wheezes. Cardiac: Regular rate and rhythm. S1-S2 normal. No appreciable murmur, gallop or rub. Abdomen: Soft and nontender. Bowel sounds normal. No mass or organomegaly. No abdominal bruit. Extremities/vascular: Well perfused. No peripheral edema. Radial, DP and PT pulses 2+ bilaterally Skin: No rash or abnormal lesions. Normal turgor. Neurologic: Nonfocal Psychiatric: Affect appropriate. Alert and oriented. Results & Data ([facility]) Vital Signs (Past 12 Hours) Vital Signs Temp Pulse Pulse Resp BP Pulse Ox 04/24/20 07:51 36.6 C 64 18 137/76 95 04/24/20 03:47 36.6 C 60 14 130/82 94 04/24/20 00:00 67 04/23/20 23:04 36.7 C 61 16 155/90 H 96 Laboratory Results Laboratory Results - last 24 hr 04/23/20 04/23/20 04/23/20 12:15 12:15 12:15 WBC 4.88 RBC 4.49 Hgb 12.7 Hct 38.8 MCV 86.4 MCH 28.3 MCHC 32.7 RDW Std Deviation 48.5 H RDW Coeff of Kristyn 15.2 H Plt Count 209 MPV 9.9 Immature Gran % (Auto) 0.2 Neut % (Auto) 48.8 Lymph % (Auto) 30.3 [place] % (Auto) 10.9 Eos % (Auto) 8.6 Baso % (Auto) 1.2 Neut # (Auto) 2.38 Lymph # (Auto) 1.48 [place] # (Auto) 0.53 Eos # (Auto) 0.42 Baso # (Auto) 0.06 Immature Gran # (Auto) 0.01 ESR PT 10.3 INR 1.0 APTT 23.9 PTT Ratio 0.9 Sodium 142 Potassium 3.6 Chloride 111 H Carbon Dioxide 25 Anion Gap 6.0 BUN 30 H Creatinine 1.43 H Est Cr Clr Drug Dosing 31.2 Est GFR ( Amer) 42.6 Est GFR (Non-Af Amer) 36.8 BUN/Creatinine Ratio 20.9 H Glucose 211 H POC Glucose Estimat Average Glucose Hemoglobin A1c Calcium 8.0 L Total Bilirubin 0.4 Direct Bilirubin < 0.1 AST 34 ALT 26 Alkaline Phosphatase 86 Troponin I 1.590 H* C-Reactive Protein Total Protein 6.9 Albumin 3.0 L Triglycerides Cholesterol LDL Cholesterol, Calc VLDL Cholesterol, Calc HDL Cholesterol Cholesterol/HDL Ratio Lipase 207 COVID-19 Eval Order 04/23/20 04/23/20 04/23/20 12:15 12:15 16:17 WBC RBC Hgb Hct MCV MCH MCHC RDW Std Deviation RDW Coeff of Kristyn Plt Count MPV Immature Gran % (Auto) Neut % (Auto) Lymph % (Auto) [place] % (Auto) Eos % (Auto) Baso % (Auto) Neut # (Auto) Lymph # (Auto) [place] # (Auto) Eos # (Auto) Baso # (Auto) Immature Gran # (Auto) ESR 22 H PT INR APTT PTT Ratio Sodium Potassium Chloride Carbon Dioxide Anion Gap BUN Creatinine Est Cr Clr Drug Dosing Est GFR ( Amer) Est GFR (Non-Af Amer) BUN/Creatinine Ratio Glucose POC Glucose 111 H Estimat Average Glucose Hemoglobin A1c Calcium Total Bilirubin Direct Bilirubin AST ALT Alkaline Phosphatase Troponin I C-Reactive Protein < 0.29 Total Protein Albumin Triglycerides Cholesterol LDL Cholesterol, Calc VLDL Cholesterol, Calc HDL Cholesterol Cholesterol/HDL Ratio Lipase COVID-19 Eval Order 04/23/20 04/23/20 04/24/20 18:18 20:11 00:23 WBC RBC Hgb Hct MCV MCH MCHC RDW Std Deviation RDW Coeff of Kristyn Plt Count MPV Immature Gran % (Auto) Neut % (Auto) Lymph % (Auto) [place] % (Auto) Eos % (Auto) Baso % (Auto) Neut # (Auto) Lymph # (Auto) [place] # (Auto) Eos # (Auto) Baso # (Auto) Immature Gran # (Auto) ESR PT INR APTT PTT Ratio Sodium Potassium Chloride Carbon Dioxide Anion Gap BUN Creatinine Est Cr Clr Drug Dosing Est GFR ( Amer) Est GFR (Non-Af Amer) BUN/Creatinine Ratio Glucose POC Glucose 151 H Estimat Average Glucose Hemoglobin A1c Calcium Total Bilirubin Direct Bilirubin AST ALT Alkaline Phosphatase Troponin I 1.650 H* 1.880 H* C-Reactive Protein Total Protein Albumin Triglycerides Cholesterol LDL Cholesterol, Calc VLDL Cholesterol, Calc HDL Cholesterol Cholesterol/HDL Ratio Lipase COVID-19 Eval Order 04/24/20 04/24/20 04/24/20 05:18 05:18 05:18 WBC 5.42 RBC 4.70 Hgb 13.3 Hct 40.7 MCV 86.6 MCH 28.3 MCHC 32.7 RDW Std Deviation 48.2 H RDW Coeff of Kristyn 15.1 H Plt Count 204 MPV 10.2 Immature Gran % (Auto) Neut % (Auto) Lymph % (Auto) [place] % (Auto) Eos % (Auto) Baso % (Auto) Neut # (Auto) Lymph # (Auto) [place] # (Auto) Eos # (Auto) Baso # (Auto) Immature Gran # (Auto) ESR PT INR APTT PTT Ratio Sodium 144 Potassium 3.6 Chloride 112 H Carbon Dioxide 25 Anion Gap 7.0 BUN 32 H Creatinine 1.27 H Est Cr Clr Drug Dosing 37.3 Est GFR ( Amer) 49.2 Est GFR (Non-Af Amer) 42.4 BUN/Creatinine Ratio 24.8 H Glucose 180 H POC Glucose Estimat Average Glucose 171 Hemoglobin A1c 7.6 H Calcium 7.9 L Total Bilirubin Direct Bilirubin AST ALT Alkaline Phosphatase Troponin I 1.820 H* C-Reactive Protein Total Protein Albumin Triglycerides 161 H Cholesterol 142 LDL Cholesterol, Calc 58 VLDL Cholesterol, Calc 32 HDL Cholesterol 52 Cholesterol/HDL Ratio 3 Lipase COVID-19 Eval Order 04/24/20 04/24/20 07:34 10:00 WBC RBC Hgb Hct MCV MCH MCHC RDW Std Deviation RDW Coeff of Kristyn Plt Count MPV Immature Gran % (Auto) Neut % (Auto) Lymph % (Auto) [place] % (Auto) Eos % (Auto) Baso % (Auto) Neut # (Auto) Lymph # (Auto) [place] # (Auto) Eos # (Auto) Baso # (Auto) Immature Gran # (Auto) ESR PT INR APTT PTT Ratio Sodium Potassium Chloride Carbon Dioxide Anion Gap BUN Creatinine Est Cr Clr Drug Dosing Est GFR ( Amer) Est GFR (Non-Af Amer) BUN/Creatinine Ratio Glucose POC Glucose 175 H Estimat Average Glucose Hemoglobin A1c Calcium Total Bilirubin Direct Bilirubin AST ALT Alkaline Phosphatase Troponin I C-Reactive Protein Total Protein Albumin Triglycerides Cholesterol LDL Cholesterol, Calc VLDL Cholesterol, Calc HDL Cholesterol Cholesterol/HDL Ratio Lipase COVID-19 Eval Order Pending PG Care Time/CCT Total # of Minutes Spent Total Time Spent with Patient: Total time spent is greater than 50% in coordination of care (as documented) at patient's floor/unit and/or counseling patient: Coding Level of Care Code 35389 Initial Inpt Care Lvl 3 Diagnoses Chest pain R07.9
[2020-04-24] MEDS: INSULIN ASPART 100 UNITS/ML 3 ML PEN SC SCH ×2 (12:09→13:26)
[2020-04-24] MEDS: INSULIN GLARGINE SOLOSTAR 100 UNITS/ML 3 ML PEN SC SCH (12:09)
--- NOTE | 2020-04-24 13:02 | Electrocardiogram Report ---
Test Reason : Blood Pressure : / mmHG Vent. Rate : 052 BPM Atrial Rate : 052 BPM P-R Int : 216 ms QRS Dur : 088 ms QT Int : 494 ms P-R-T Axes : 026 -41 -18 degrees QTc Int : 459 ms Sinus bradycardia with 1st degree A-V block with Premature atrial complexes Left axis deviation Moderate voltage criteria for LVH, may be normal variant Poor R wave progression, consider anterior MN vs. lead placement vs. LVH Nonspecific T wave abnormality Abnormal ECG When compared with ECG of 23-APR-2020 11:33, Premature atrial complexes are now Present Vent. rate has decreased BY 25 BPM T wave inversion now evident in Inferior leads Nonspecific T wave abnormality, improved in Lateral leads Confirmed by Aaron Romo ([id number]) on 04/24/2020 1:01:49 PM Referred By: Nikolas Chu Confirmed By:Aaron Romo
--- NOTE | 2020-04-24 13:17 | XCELERA ---
[id number]
--- NOTE | 2020-04-25 07:32 | Discharge Summary ---
Date of Service April 24, 2020 Admission HPI Per Admitting Provider Anjelica Taylor is a 70 year old female who presented to the ER via private vehicle due to chest pain. Started on 3 days previously with mild discomfort in chest at rest. Substernal, no radiation. "Little pressure and dull pain", not sharp. Non-exertional. Worse at night when lying down. No associated SOB, diaphoresis, nausea. Appeared to improve in the morning and even managed yard work without pain. However, progressively got worse towards the evening. The following day she had the same pattern with worsening intermittent chest pain throughout the day. Last night is the worst it has been and she had a hard time going to sleep. She would have come to the ER then but she has a hard time driving at night therefore waited till this morning to call her PCP who advised her to come to the ER. Worst pain around 11-1am last night, severity 6-7/10. No pain since waking up this morning. Generally more tired recently and not exerting herself as much. No orthopnea, PND, palpitations, presyncope or syncope. No personal smoking or cardiac history. Family history of CAD - father in 60s, brother in 80s. Concerning history of spontaneous retroperitoneal bleed in 2016 associated with renal cysts requiring ICU admission although no invasive intervention ultimately. This occurred while taking aspirin 81mg and she was told she should not take blood thinners again. However she was also taking NSAIDs 3 weeks prior to this diagnosis and thought was this also potentially contributed. Under Dr Cox (previously Dr Koch). In the ER she has been chest pain free however troponin was elevated. No ASA or heparin started due to history of retroperitoneal bleed. Principal Diagnosis Elevated troponin -> Possibly due to arrhythmia? Discharge Exam Constitutional WD/WN, vitals as above Eyes EOM intact bilaterally; no conjunctival abnormality ENMT external ear and nose normal, oropharynx normal Neck trachea midline, no thyromegaly normal visual inspection Respiratory normal respiratory effort, lungs clear to auscultation no respiratory distress Cardiovascular RRR, no murmur, no edema Gastrointestinal (Abdomen) Inspection/Auscultation: abdomen normal to inspection; abdomen not distended Musculoskeletal no cyanosis or clubbing, extremities motor strength 5/5 Skin no rashes, warm and dry Neurologic moves all extremities and awake Psychiatric Orientation: alert, oriented to person and cooperative Discharge Data Allergies Allergy/AdvReac Type Severity Reaction Status Date / Time cephalexin Allergy Unknown Verified 04/23/20 14:08 Cipro Allergy Unknown rash Verified 06/30/15 17:30 ciprofloxacin Allergy Unknown rash Verified 04/23/20 14:08 shellfish derived Allergy Unknown Verified 04/23/20 14:08 Sulfa (Sulfonamide Allergy Unknown . Verified 04/23/20 14:08 Antibiotics) peanuts Allergy Mild Cough Uncoded 04/23/20 14:08 Consultations 04/23/20 13:13 ED Decision to Admit Stat 04/23/20 15:47 Consult Cardiology Routine Hospital Course (1) Atypical chest pain: Initially thought to be perimyocarditis vs. NSTEMI. - Echo showed normal EF, no pericardial effusion, and no indication of pericarditis. - Consulted cardiology - Treadmill stress echo was done on 04/24 and was negative. Patient had NO chest pain during hospitalization. Did NOT feel it was myocarditis. Patient and family were very reluctant to go down route of [facility] because she has had prior renal bleeding and was worried about needing DAPT for a year if she had a stent. Given negative stress, reasonable to not pursue cath at this time. - Patient reported palpitations and a fast, irregular heart rate during chest pain on Thursday. Encouraged her to wear her Apple Watch and monitor HR and single-lead EKG. She and family preferred this over Holter monitor. She will take readings to her PCP. - Final thought was that she may have been having symptoms from her hiatal hernia if this was non-cardiac. She will discuss this with Dr. Chu as well. (2) Diabetes: Home med list: Humalog 2, 6, 10-12, Tresiba 18 units HS (took last night), Pioglitazone 30mg PO daily Inpatient treatment with T2DM diet, Lantus 10 units BID, Novolog aim 110-140, correction 30, carb coverage 11 HbA1C with AM labs (previously 7.9 in Oct) (3) Chronic kidney disease, stage III (moderate): Monitor BMP with AM labs - Stable while inpatient. (4) Hypertension: Continue home medication of lisinopril 10mg PO daily (5) DVT prophylaxis: No chemical prophylaxis due to history of retroperitoneal bleed Total Time Total Time Spent Total Time Spent (In Minutes): 35 Discharge Plan Discharge Items Patient Disposition: Home - Self-Care Reason For Visit: ATYPICAL CHEST PAIN Discharge Diagnosis: Chest pain - Possibly an arrhythmia vs. hiatal hernia Activity: Resume your previous activity Non-emergency contact: Primary Care Provider and Registration Rep Call non-emergency contact if: your symptoms worsen Follow-up/Referrals: Nikolas Chu Jr, [Primary Care Provider] - Diet: Carb Consistent or DM2 and Heart Healthy Addtl Attending Provider Instructions: You were admitted to the hospital with chest pain for about a week. We did some testing and found your troponin was elevated (at 1.8) which can be a sign of stress on the heart. We did a stress test, and it did not indicate any ischemic heart disease (meaning the blood flow through the arteries supplying the heart is good). Dr. Romo felt that myocarditis (inflammation of the heart from a virus) was also unlikely. This leaves a possible heart rhythm issue as a potential source of the stress. As we discussed, wear your Apple Watch for the next few weeks until you see Dr. Chu in the clinic. If you feel palpitations or feel your heart racing or feel chest pain, please use the "EKG" feature of the watch and save the tracing for Dr. Chu's review. Depending on what you see, he may recommend further testing. If you do not see any concerning issues with the heart rhythm, your next stop is possibly the hiatal hernia which could cause pressure-like pain in the chest. If you have a recurrence of your chest pain, please call your PCP's office. If the pain is severe, long-lasting, or if you have other concerning symptoms such as shortness of breath, dizziness, lightheadedness, nausea, throwing up, or fainting. Pending Studies at Discharge: No Stand-Alone Forms: [facility], Smoking Cessation Medications and DC Order Prescriptions: Continued folic acid 1 mg tablet 1 mg PO QAM Qty: 90 RF: 0 pioglitazone 30 mg tablet 30 mg PO QAM RF: 0 docusate sodium 100 mg tablet 100 mg PO QAM RF: 0 amlodipine 5 mg tablet 5 mg PO HS RF: 0 fluticasone propionate 50 mcg/actuation spray,suspension 1 sprays intranasal DAILY PRN (Reason: Congestion) Qty: 3 RF: 0 biotin 10,000 mcg Capsule 10,000 mcg PO QAM RF: 0 lisinopril 10 mg tablet 10 mg PO HS RF: 0 insulin lispro [Humalog KwikPen Insulin] 100 unit/mL insulin pen See Rx Instructions .ROUTE .COMPLEX RF: 0 rosuvastatin [Crestor] 5 mg tablet 5 mg PO HS RF: 0 cholecalciferol (vitamin D3) [Vitamin D3] 25 mcg (1,000 unit) Tablet 25 mcg PO QAM RF: 0 calcium carbonate-vitamin D3 500 mg(1,250mg) -125 unit Tablet 1 tab PO QAM RF: 0 Centrum Silver Women 8 mg iron-400 mcg-300 mcg Tablet 1 tab PO QAM RF: 0 I-Caps 280-10-2 mg Capsule 1 cap PO QAM RF: 0 Tresiba FlexTouch U-100 100 unit/mL (3 mL) insulin pen 18 unit SUBCUT HS RF: 0 Restasis MultiDose 0.05 % drops 1 drp OPB QAM RF: 0 Nikky Eyelid Solution 1 applic topical QAM RF: 0 Discharge Orders: Discharge Order (Routine); Ordered 04/24/20 Ordered By: Danish More/Other Patient Handouts: Managing Type 2 Diabetes Admission Data Admit Date/Time: 04/23/20 14:38 Attending Provider: Danish Koch Admit Provider: Stefan Salmeron Primary Care Provider: Nikolas Chu Jr Other Providers: Aaron Romo ; Danish Koch Other Interventions: Discharge Summary Assessment (RN) Last Done: 04/24/20 14:55 Coding Level of Care Code 94375 OBS Care - Discharge Diagnoses Atypical chest pain R07.89 Diabetes E11.9 Chronic kidney disease, stage III (moderate) N18.3 Hypertension I10 DVT prophylaxis Z29.9
== END 2020-04-24 15:33 | disposition home or self-care (01) ==
LOC: ED 11:22 → 2E 11:22 → SUATTDRO 14:38